=== PATIENT | male | born 2000 | race Two or more races ===

== ENCOUNTER 2021-07-26 21:15 | Inpatient (IN) | payer OTHER, SELFPAY ==
[2021-07-26 21:30] VITALS: BP 161/96; PULSE 66; RESP 16; TEMP 36.3; O2SAT 99
[2021-07-27 00:09] VITALS: BMI 23.8
--- NOTE | 2021-07-27 03:36 | PC.NURSE ---
Pt signed a 3 day on 05/26, which is due to be up on 07/29.
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
[2021-07-27 09:30] VITALS: BP 111/83; PULSE 81; RESP 16; TEMP 36.9; O2SAT 97
--- NOTE | 2021-07-27 09:49 | PC.NURSE ---
Patient states he does not want or need an order for nicotine replacement.
[2021-07-27] MEDS: Sertraline HCL 50 MG TABLET PO (14:28)
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
[2021-07-27 21:28] VITALS: BP 119/60; PULSE 80; TEMP 36.9; O2SAT 98
[2021-07-28] MEDS: Sertraline HCL 50 MG TABLET PO (10:05)
--- NOTE | 2021-07-28 11:02 | PC.NURSE ---
Eduard is alert, fully oriented, pleasant and cooperative with discharge process. He denies ideation, plan or intent to harm self or others. He verbalizes knowledge of community resources and verbalizes plan to use those as needed after discharge. He verbalizes knowledge of his current medication regime. He denies physical complaint.
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
--- NOTE | 2021-07-28 13:04 | HO.PM.IMCN ---
History of Present Illness Data of Consult Service Date: 07/27/21 Primary Care Provider: Randal Gonzalez MD HPI Reason for consult: Routine Medical H&P LATE ENTRY FOR 07/27/21 21 yo M who reports no medical history admitted to . Medical consult requested for routine medical H&P per protocol. Patient is seen and examined in the exam room. They deny any medical complaints at this time. PMH/PSH -- negative FH -- denies any known medical problems SH - no tobacco or alcohol use; sporadic marijuana use Review of Systems Review of Systems: negative except HPI PMFSH Social History Household Members: Family Housing: House Do you presently have visiting nurse or other home services: No Patient Tobacco Use Status: Current someday Tobacco user Tobacco use type: Cigarette Cigarettes Per Day: 0 Smoked in Last 30 Days: Yes e-Cigarette/Vaping Use: Currently Using Frequency of e-Cigarette/Vaping Use: casual Patient Interested in Nicotine Replacement: Yes (gum) Use of substances other than those prescribed or required for medical reasons: Yes Substance Use Type: Marijuana Substance Use Frequency: Monthly Last Used Substance: Unknown Currently Displaying Signs/Symptoms of Drug Intoxication Withdrawal: No Any prior treatment program specific to substance use: No Have you been hit, kicked, punched, or otherwise hurt by someone within the past year? If so, by whom?: No Do you feel safe in your current relationship?: Yes Is there a partner from a previous relationship who is making you feel unsafe now?: No Are you made to feel afraid or neglected: No Advance Directives: No Advance Directives Information Provided: No Advance Directives on File: No Do you have thoughts of harming others: None Do you have a plan to hurt others: No Plan Recently lost weight without trying: No service: No Sexual orientation: Bisexual Meds Allergies Allergy/AdvReac Type Severity Reaction Status Date / Time No Known Allergies Allergy Verified 07/27/21 00:11 Active Medications: Current Medications Acetaminophen (Acetaminophen 325 Mg Tablet) 650 mg PO Q6H PRN PRN Reason: Headache/Pain Mild Scale (1-3) Al Hydroxide/Mg Hydroxide (Magnesium Hydrox/Alum Hydrox 30 Ml Oral.Susp) 30 ml PO Q6H PRN PRN Reason: Heartburn/Nausea Hydroxyzine HCl (Hydroxyzine Hcl 25 Mg Tablet) 25 mg PO BEDTIME PRN PRN Reason: Anxiety Magnesium Hydroxide (Milk Of Magnesia 30 Ml Oral.Susp) 30 ml PO DAILY PRN PRN Reason: Constipation Nicotine Polacrilex (Nicotine Polacrilex 2 Mg Gum) 4 mg BUCCAL Q2H PRN PRN Reason: Nicotine Cravings Sertraline HCl (Sertraline Hcl 50 Mg Tablet) 50 mg PO DAILY ADITI Last Admin: 07/28/21 10:05 Dose: 50 mg Documented by: Trazodone HCl (Trazodone Hcl 50 Mg Tablet) 50 mg PO BEDTIME PRN PRN Reason: Insomnia Physical Exam Vital Signs and Narrative: Vital Signs: Last Vital Signs Temp 98.5 F 07/27/21 21:28 Pulse 80 07/27/21 21:28 Resp 16 07/27/21 09:30 BP 119/60 07/27/21 21:28 Pulse Ox 98 07/27/21 21:28 BMI result Body Mass Index 23.8 Const: Other: General - no acute distress, appears comfortable Cardiovascular - regular rate and rhythm, S1-S2 Lungs - normal respiratory effort, clear to auscultation bilaterally, no wheezing Abdomen - soft, nontender, no rebound or guarding Extremities - no edema bilaterally Neuro - awake and alert, no focal deficits; cn 2-12 intact b/l Assessment and Plan (1) Routine medical exam: Status: Acute Plan 21 yo M admitted to M[facility], endorses no medical problems. Medical consultation sought for routine medical H&P. Patient has no active nor chronic medical issues. Patient has been counseled on age appropriate health maintenance as an outpatient. Continue care per primary team. Will sign off. Please re-consult if any issues arise.
== END 2021-07-28 14:05 | disposition home or self-care (01) | DRG 885 ==
PROVIDERS: Admitting Provider Psychiatry & Neurology Psychiatry; PCP Pediatrics; Visit Provider Psychiatry & Neurology Psychiatry
DX: F33.1 Major depressive disorder, recurrent, moderate (principal); R45.851 Suicidal ideations; F17.210 Nicotine dependence, cigarettes, uncomplicated; Z71.6 Tobacco abuse counseling; Z62.811 Personal history of psychological abuse in childhood; Z62.810 Personal history of physical and sexual abuse in childhood; Z79.899 Other long term (current) drug therapy